=== PATIENT | male | born 1965 | race Two or more races ===

== ENCOUNTER 2016-11-23 23:25 | Emergency (ER) | payer OTHER ==
[~2016-11-23] VITALS: Ht 177.8 cm; Wt 72.6 kg
[2016-11-24] MEDS ORDERED: IV NS 0.9% 1,000 ML BAG IV ONE
--- NOTE | 2016-11-24 00:01 | NUR ---
PT BIB [facility] WITH A C/O LT FLANK PAIN. PT REC'D 4 MG ZOFRAN AND 4 MG MORPHINE IN THE FIELD. PT IS STILL C/O LT FLANK PAIN. PT WAS TRIAGED AND TAKEN TO ROOM #3. PT IS ON THE MONITOR AND CONTINOUS PULSE OX. PT WAS GIVEN A URINAL AND WILL TRY AND GIVE A URINE SAMPLE.
[2016-11-24] MEDS ORDERED: IV SET PRIMARY 1 EA INFUS.SET MC ONE (00:07)
[2016-11-24] MEDS ORDERED: IV NS 0.9% 1,000 ML ONE (00:07)
--- NOTE | 2016-11-24 00:10 | NUR ---
PT LEFT FOR CT VIA GURNEY.
[2016-11-24 00:16] LABS: BASOPHILS % (AUTO) 0.2 % (0.0-2.0); EOSINOPHILS # (AUTO) 0.4 /CMM (0.0-0.7); EOSINOPHILS % (AUTO) 3.7 % (0.0-6.0); HEMATOCRIT 43 % (39-51); HEMOGLOBIN 14.6 g/dL (13.5-17.5); LYMPHOCYTES # (AUTO) 2.3 /CMM (0.8-4.8); LYMPHOCYTES % (AUTO) 21.2 % (20.0-44.0); MEAN CORPUSCULAR HEMOGLOBIN 29 PG (26.0-33.0); MEAN CORPUSCULAR HGB CONC 34 g/dl (31.0-36.0); MEAN CORPUSCULAR VOLUME 84 fL (80-96); MONOCYTES # (AUTO) 0.6 /CMM (0.1-1.30); MONOCYTES % (AUTO) 5.7 % (2.0-12.0); NEUTROPHILS # (AUTO) 7.6 /CMM (1.8-8.9); NEUTROPHILS % (AUTO) 69.2 % (43.0-81.0); PLATELET COUNT (AUTO) 283 /CMM (150-450); RDW COEFFICIENT OF VARIATION 12.9 (11.5-15.0); WHITE BLOOD COUNT (AUTO) 10.9 K/uL (4.3-11.0)
[2016-11-24 00:19] LABS: APPEARANCE,URINE CLEAR (CLEAR); BILIRUBIN,URINE NEGATIVE (NEGATIVE); BLOOD, URINE NEGATIVE Ery/uL (NEGATIVE); COLOR,URINE YELLOW (YELLOW); KETONES,URINE NEGATIVE (NEGATIVE); LEUKOCYTE ESTERASE ,URINE NEGATIVE (NEGATIVE); NITRITE, URINE NEGATIVE (NEGATIVE); PH,URINE 7.5 (5.0-8.0); PROTEIN,URINE NEGATIVE (NEGATIVE); UGLUCOSE NEGATIVE (NEGATIVE); UROBILINOGEN,URINE 0.2 EU/dL (0.2)
--- NOTE | 2016-11-24 00:22 | NUR ---
PT RETURNED FROM CT.
[2016-11-24] MEDS ORDERED: KETOROLAC TROMETHAMINE INJ 30 MG/ML VIAL ONE (00:23)
[2016-11-24] MEDS ORDERED: ONDANSETRON HCL/PF 4 MG/2 ML VIAL ONE (00:23)
--- NOTE | 2016-11-24 00:24 | NUR ---
PT MEDICATED ORDERED.
[2016-11-24 00:27] LABS: CREATININE 1.3 mg/dL (0.6-1.3); POTASSIUM 3.2 mmol/L (3.5-5.1)
[2016-11-24 00:33] LABS: ALBUMIN 4.1 g/dL (3.4-5.0); BILIRUBIN,DIRECT 0.1 mg/dL (0.0-0.2); BILIRUBIN,TOTAL 0.4 mg/dL (0.2-1.0); TOTAL PROTEIN, SERUM 7.5 g/dL (6.4-8.2)
[2016-11-24] MEDS ORDERED: ONDANSETRON HCL/PF 4 MG/2 ML VIAL IV ONE (01:00)
[2016-11-24] MEDS ORDERED: KETOROLAC TROMETHAMINE INJ 30 MG/ML VIAL IV ONE (01:00)
--- NOTE | 2016-11-24 01:50 | NUR ---
IV removed. Catheter intact and site benign. Pressure and 4x4 applied to site. No bleeding noted.Patient discharged to home in stable condition. Written and verbal after care instructions given. Patient verbalizes understanding of instruction AND RX. PT AMBULATED OUT WITH A STEADY GAIT. PT IS TAKING UBER HOME. PT REC'D A STRAINER AND STERILE CUP. PT ALSO REC'D AN RX FOR PAIN MEDICATION. VSS. PT STATED THAT HIS PAIN WAS MUCH BETTER.
[2016-11-24 02:13] VITALS: BP 124/45
== END 2016-11-24 01:50 | disposition home or self-care (01) ==
LOC: ER 23:27
DX: N20.0 Calculus of kidney (principal)
CPT/HCPCS: 36415; 80048-TC; 80076-TC; 81000-TC; 83690-TC; 85025-TC; A4606; J1885; J2405; J7030; Z7610

== ENCOUNTER 2016-11-24 11:31 | Emergency (ER) | payer OTHER ==
[~2016-11-24] VITALS: Ht 177.8 cm; Wt 72.6 kg
--- NOTE | 2016-11-24 11:42 | NUR ---
AMBULATORY TO ER BED 07. C/O LT SIDE FLANK PAIN THAT STARTED 40 MINS DIRECTOR DIABETES. PT WAS SEEN HERE LAST NIGHT AND WAS D/C AT 3AM. PT STATES WENT OUT FOR BREAKFAST WHEN PAIN STARTED AGAIN. GOWNED AND PLACED ON MONITOR. AWAITING MD BRAXTON.
--- NOTE | 2016-11-24 11:45 | NUR ---
DR LUEVANO AT BEDSIDE FOR EVAL.
[2016-11-24] MEDS ORDERED: KETOROLAC TROMETHAMINE INJ 30 MG/ML VIAL ONE (11:52)
[2016-11-24] MEDS ORDERED: ONDANSETRON HCL/PF 4 MG/2 ML VIAL ONE (11:52)
[2016-11-24] MEDS: ONDANSETRON HCL/PF 4 MG/2 ML VIAL IV ONE (11:58)
[2016-11-24] MEDS: KETOROLAC TROMETHAMINE INJ 30 MG/ML VIAL IV ONE (11:58)
--- NOTE | 2016-11-24 12:31 | NUR ---
Patient is resting comfortably in bed.VSS
--- NOTE | 2016-11-24 13:59 | NUR ---
Patient is resting comfortably in bed with eyes closed. Easily aroused. VSS
[2016-11-24 14:45] VITALS: BP 120/88
--- NOTE | 2016-11-24 14:46 | NUR ---
IV removed. Catheter intact and site benign. Pressure and 4x4 applied to site. No bleeding noted.Patient discharged to home in stable condition. Written and verbal after care instructions given. Patient verbalizes understanding of instruction.
== END 2016-11-24 14:48 | disposition home or self-care (01) ==
LOC: ER 11:32
DX: N23 Unspecified renal colic (principal); Z87.442 Personal history of urinary calculi
CPT/HCPCS: A4606; J1885; J2405; Z7610